=== PATIENT | male | born 1935 | race Caucasian/White ===

== ENCOUNTER 2016-11-24 07:31 | Day surgery (SDC) | payer OTHER ==
[2016-11-18 13:10] VITALS: BMI 21.9
[2016-11-24] MEDS ORDERED: GENTAMICIN SULFATE 0.3% OPHTHALMIC (EYE DROPS) 5ML BOTTLE OS SCH (08:00)
[2016-11-24] MEDS ORDERED: PHENYLEPHRINE 2.5% OPHTH SOLN 15 ML BOTTLE OS SCH (08:00)
[2016-11-24] MEDS ORDERED: CYCLOPENTOLATE HCL 1% OPHTH SOLN 2 ML BOTTLE OS SCH (08:00)
[2016-11-24] MEDS ORDERED: FLURBIPROFEN 0.03% OPHTH SOLN 2.5 ML BOTTLE OS SCH (08:00)
[2016-11-24] MEDS ORDERED: TROPICAMIDE 1% OPHTH SOLN 15 ML BOTTLE OS SCH (08:00)
[2016-11-24] MEDS: CYCLOPENTOLATE HCL 1% OPHTH SOLN 2 ML BOTTLE ONE ×5 (08:05→08:25)
[2016-11-24] MEDS: PHENYLEPHRINE 2.5% OPHTH SOLN 15 ML BOTTLE ONE ×5 (08:05→08:25)
[2016-11-24] MEDS: GENTAMICIN SULFATE 0.3% OPHTHALMIC (EYE DROPS) 5ML BOTTLE ONE ×5 (08:05→08:25)
[2016-11-24] MEDS: FLURBIPROFEN 0.03% OPHTH SOLN 2.5 ML BOTTLE ONE ×5 (08:05→08:25)
[2016-11-24] MEDS: TROPICAMIDE 1% OPHTH SOLN 15 ML BOTTLE ONE ×5 (08:05→08:25)
[2016-11-24] MEDS ORDERED: ONDANSETRON 4 MG/2 ML VIAL ONE (09:02)
[2016-11-24] MEDS ORDERED: PROPOFOL 20 ML ONE (09:02)
[2016-11-24] MEDS ORDERED: BSS (NA/CA/MG/K) BALANCED SALT SOLUTION OPHTH SOLN 15 ML BOTTLE ONE ×2 (10:15→10:50)
[2016-11-24] MEDS ORDERED: ACETAMINOPHEN 325 MG TABLET (FP) PO PRN (11:25)
[2016-11-24] MEDS ORDERED: ACETAMINOPHEN 325 MG TABLET (FP) ONE (11:28)
[2016-11-24 11:50] VITALS: TEMP 98.1
[2016-11-24 11:53] VITALS: BP 124/64; PULSE 68
--- NOTE | 2016-11-24 20:16 | OP ---
DATE OF OPERATION: 11/24/2016 PREOPERATIVE DIAGNOSIS: Cataract, left eye. POSTOPERATIVE DIAGNOSIS: Cataract, left eye. PROCEDURE: Cataract extraction via phacoemulsification with insertion of anterior chamber lens implant with anterior vitrectomy. ANESTHESIA: Regional with sedation. ESTIMATED BLOOD LOSS: Less than 1 mL. COMPLICATIONS: None. SPECIMENS: None. PROCEDURE: The patient was identified in the holding area. After all risks, benefits and alternatives were explained to the patient, informed consent was obtained. The left eye was marked with a marking pen. The patient then entered the operating room on an eye stretcher. After formal time-out was performed, a 3 mL injection of equal parts 2% lidocaine with epinephrine and 0.5% Marcaine was given around the left eye. The left eye was then prepped and draped in the usual sterile fashion. Eyelid speculum was placed at the eyelids of the left eye. An infratemporal paracentesis incision was created using a 15-degree blade. Viscoelastic was then injected into the anterior chamber. A 2.4-mm keratome blade was then used to make a supratemporal incision. A 360-degree continuous curvilinear capsulorrhexis was then created using bent cystotome and Utrata forceps. Hydrodissection was performed with balanced saline solution on the cannula. Phacoemulsification was then used to disassemble and completely remove the nucleus from the eye. After phacoemulsification was finished, a split in the posterior capsule was noted from about 2 o'clock to 4 o'clock. Therefore an anterior vitrectomy was performed to make sure there was no vitreous in the anterior chamber. Irrigation/aspiration was used to remove any remaining cortical material from the eye. The anterior chamber was then reformed using balanced saline solution. A 5.2-mm keratome blade was then used to expand the corneal incision. Miochol and Miostat were then given intracamerally to the eye. The pupil came down and was round. There was no vitreous noted to be in the anterior chamber and all wounds were checked for vitreous and they were vitreous free. An Vinny model [id number] with a power of 19.5 diopters, serial number [id number], was inspected and found to be defect free and placed into the angle. The pupil was noted to be round and symmetric afterward. A keyhole iridotomy was then created using 0.12 and Vannas scissors. Red reflex was noted upon inspection through the keyhole iridotomy. The anterior chamber was then reformed using balanced saline solution and the main wound was closed using interrupted 10-0 nylon sutures, which were all buried. Upon completion, anterior chamber was deep, the eye had an adequate pressure, the pupil was round and symmetric, and the anterior chamber eye well was centered and appropriately located in both sides of the angle. There was no vitreous present in any of the wound edges and there was no vitreous present in the anterior chamber. Topical antibiotic eyedrops and ointment were then administered to the left eye. The left eye was then patched and shielded. The patient tolerated the procedure well and left the operating room in stable condition, to follow up in the eye clinic the next morning at 9. KALIN WHITTAKER M.D. [id number]
== END 2016-11-24 12:20 | disposition home or self-care (01) ==
LOC: FASU 07:31
PROVIDERS: ATTEND Ophthalmology
PROC: 08RK3JZ Replacement of Left Lens with Synthetic Substitute, Percutaneous Approach (ICD-10-PCS; principal; 2016-11-24 10:00)
DX: H26.20 Unspecified complicated cataract (principal)